=== PATIENT | male | born 1945 | race Asian ===

== ENCOUNTER → 2018-05-22 | Outpatient (CLI) | payer MEDICARE, BC ==
[~2018-05-22] MED LIST: ATOR40TA28 PO; CARV25 PO; GABA-531 PO; INSNOV SQ; SPIR25 PO; VALS1TAB79 PO
== END | disposition home or self-care (01) ==
LOC: RADPV 12:15
PROVIDERS: ATTEND Legal Medicine
DX: I82.4Z2 Acute embolism and thrombosis of unspecified deep veins of left distal lower extremity (principal); R60.0 Localized edema
CPT/HCPCS: 93971

== ENCOUNTER 2021-08-04 12:30 | Emergency (ER) | payer MEDICARE, BC ==
[~2021-08-04] VITALS: Ht 170.2 cm; Wt 86.4 kg
[~2021-08-04 12:30] MED LIST changes: +GABA-1181 PO; -GABA-531 PO; +SPIR-37 PO; -SPIR25 PO; -VALS1TAB79 PO; +VALS1TAB80 PO
[2021-08-04 14:14] VITALS: BP 137/62
== END 2021-08-04 13:55 | disposition home or self-care (01) ==
LOC: EMS 12:30
DX: T85.590A Other mechanical complication of bile duct prosthesis, initial encounter (principal); I25.10 Atherosclerotic heart disease of native coronary artery without angina pectoris; E11.9 Type 2 diabetes mellitus without complications; I50.9 Heart failure, unspecified; Z88.0 Allergy status to penicillin; Z79.4 Long term (current) use of insulin; Y84.6 Urinary catheterization as the cause of abnormal reaction of the patient, or of later complication, without mention of misadventure at the time of the procedure
CPT/HCPCS: 82962; 99282

== ENCOUNTER 2025-05-01 09:39 | Emergency (ER) | payer BC, MEDICARE ==
[~2025-05-01] VITALS: Ht 175.3 cm; Wt 113.6 kg
[2025-05-01 09:51] VITALS: TEMP 97.3
[2025-05-01 12:45] VITALS: BP 125/67; PULSE 74; RESP 17; O2SAT 98
== END 2025-05-01 14:46 | disposition home or self-care (01) ==
LOC: EMS 09:39
DX: M25.472 Effusion, left ankle (principal); E11.9 Type 2 diabetes mellitus without complications; I25.10 Atherosclerotic heart disease of native coronary artery without angina pectoris; I50.9 Heart failure, unspecified; Z88.0 Allergy status to penicillin; Z95.1 Presence of aortocoronary bypass graft
CPT/HCPCS: 93971; 99284; Z7502